=== PATIENT | female | born 1980 | race Caucasian/White ===

== ENCOUNTER 2021-12-31 10:04 | Emergency (ER) | payer BC ==
[~2021-12-31] VITALS: Ht 165.1 cm; Wt 63.5 kg
--- NOTE | 2021-12-31 10:26 | NUR ---
COVID swab collected and sent to LAB.
[2021-12-31] MEDS ORDERED: IBUPROFEN 600 MG TABLET PO ONE (10:30)
[2021-12-31] MEDS ORDERED: IBUPROFEN 600 MG TABLET ONE (10:32)
[2021-12-31] MEDS ORDERED: IBUP-1955 PO (10:34)
[2021-12-31] MEDS ORDERED: CYCL5TAB PO (10:34)
[2021-12-31 11:04] VITALS: BP 138/90
== END 2021-12-31 11:05 | disposition home or self-care (01) ==
LOC: ER 10:04
DX: S16.1XXA Strain of muscle, fascia and tendon at neck level, initial encounter (principal); V43.92XA Unspecified car occupant injured in collision with other type car in traffic accident, initial encounter; Y92.411 Interstate highway as the place of occurrence of the external cause; R51.9 Headache, unspecified; M79.10 Myalgia, unspecified site; Z20.822 Contact with and (suspected) exposure to COVID-19
CPT/HCPCS: 36415; 99283; C9803; U0003; A4663

== ENCOUNTER 2025-04-26 11:09 | Emergency (ER) | payer BC ==
[~2025-04-26] VITALS: Ht 170.2 cm; Wt 63.5 kg
[~2025-04-26 11:09] MED LIST: CYCL5TAB PO; IBUP-1955 PO
[2025-04-26 11:39] VITALS: BP 138/78
[2025-04-26] MEDS ORDERED: LIDOCAINE 2%-EPI 1:100,000 20 ML VIAL ONE (11:53)
[2025-04-26] MEDS: LIDOCAINE 2%-EPI 1:100,000 20 ML VIAL IJ ONE (11:54)
[2025-04-26] MEDS ORDERED: NEOMY/BACITRA/POLYMYXIN B OINT UD PACKET TP ONE (11:59)
[2025-04-26] MEDS: NEOMY/BACITRA/POLYMYXIN B OINT UD PACKET TP ONE (12:00)
[2025-04-26] MEDS: TDAP DIPH,PERTUSS,TET VAC/PF 0.5 ML DISP.SYRIN IM ONE (12:41)
[2025-04-26 13:03] VITALS: BP 138/78; TEMP 98.2; O2SAT 98
== END 2025-04-26 13:04 | disposition home or self-care (01) ==
LOC: ER 11:09
DX: S61.210A Laceration without foreign body of right index finger without damage to nail, initial encounter (principal); W26.0XXA Contact with knife, initial encounter; Y93.89 Activity, other specified; Y92.89 Other specified places as the place of occurrence of the external cause; Y99.9 Unspecified external cause status
CPT/HCPCS: A4606; A4663